=== PATIENT | male | born 1980 | race African-American/Black ===

== ENCOUNTER 2022-04-12 14:33 | Emergency (ER) | payer MEDICAID ==
[~2022-04-12] VITALS: Ht 188 cm; Wt 82.0 kg
[2022-04-12 14:45] VITALS: BP 126/73
== END 2022-04-12 18:47 | disposition home or self-care (01) ==
LOC: ER 14:33
DX: U07.1 COVID-19 (principal); B35.3 Tinea pedis
CPT/HCPCS: 87426; 99283; C9803